=== PATIENT | female | born 1970 | race Caucasian/White ===

== ENCOUNTER → 2023-09-03 11:53 | Outpatient (REF) | payer BC, SELFPAY | LOC: HWRAD 11:53 | PROVIDERS: ATTENDING PHYSICIAN Internal Medicine Hematology & Oncology; FAMILY PHYSICIAN Family Medicine | DX: R19.07 Generalized intra-abdominal and pelvic swelling, mass and lump (principal); Z85.820 Personal history of malignant melanoma of skin; C56.9 Malignant neoplasm of unspecified ovary | CPT/HCPCS: 71270; 74178; Q9967 ==

== ENCOUNTER → 2023-09-08 08:16 | Outpatient (REF) | payer BC, SELFPAY | LOC: MRI 08:16 | PROVIDERS: ATTENDING PHYSICIAN Radiology Radiation Oncology; FAMILY PHYSICIAN Family Medicine | DX: C79.31 Secondary malignant neoplasm of brain (principal) | CPT/HCPCS: 72156; A9575 ==

== ENCOUNTER → 2023-09-09 08:15 | Outpatient (REF) | payer BC, SELFPAY | LOC: MRI 08:15 | PROVIDERS: ATTENDING PHYSICIAN Radiology Radiation Oncology; FAMILY PHYSICIAN Family Medicine | DX: C79.31 Secondary malignant neoplasm of brain (principal) | CPT/HCPCS: 72157; 72158; A9575 ==

== ENCOUNTER 2023-11-03 17:39 | Emergency (ER) | payer BC, SELFPAY ==
[2023-11-03 17:41] VITALS: BP 126/70
--- NOTE | 2023-11-03 19:10 | ED.GENMED ---
History of Present Illness
General
Chief Complaint: Musculo-Skeletal Complaint
Time Seen by Provider: 11/03/23 19:10
Travel History
Have you had any contact with someone who has COVID-19?: No
Do you have any symptoms of coronavirus? Fever > 100 degrees, chills, cough, shortness of breath, sore throat, loss of taste or smell, muscle aches, or headache?: No
History of Present Illness
History of Present Illness:
HPI: Patient presents due to increasing weakness along with paresthesias to both lower extremities over the past couple of days. She has a history of metastatic ovarian cancer. She fell today. She called her doctors at [facility] and they
told her to come to the closest hospital for evaluation for the possibility of 'spinal compression'.
EXAM:
GENERAL: Hair loss noted, she appears somewhat weak but has excellent mental status, she appears somewhat uncomfortable at times
HEENT: Moist oral mucosa
CARDIOVASCULAR: No murmurs, normal heart rate, regular rhythm, No chest wall tenderness
PULMONARY: No respiratory distress, breath sounds are clear and equal
ABDOMEN: Soft with no peritoneal signs, no tenderness
NEUROLOGIC: Excellent strength all extremities, no coordination deficits, she is able to lift each leg independently off the stretcher, she has good strength in an L5 and S1 distribution, she has no sensory deficits to the lower extremity
PSYCHIATRIC: Appropriate mental status, normal insight and judgement
EXTREMITIES: Nontender, no edema, moves all extremities equally
SKIN: Older/healing shingles noted to the right side of the posterior skull
TIME OF INITIAL ENCOUNTER: 7:30 PM
NUMBER AND COMPLEXITY OF PROBLEMS ADDRESSED AT THE ENCOUNTER
� Chronic conditions affecting care: Ovarian cancer, GERD, anemia
� Acute Exacerbation and/or Progression of Chronic Illness: This is an acute problem
� Differential Diagnosis includes: Progression of ovarian cancer,
AMOUNT AND/OR COMPLEXITY OF DATA TO BE REVIEWED AND ANALYZED
� I performed an independent evaluation of and my interpretation is:
EKG:
CT:
X-rays:
Laboratory Studies:
Other: MRI of the L-spine has been performed and I reviewed radiologist interpretation
� Review of other/old records: I reviewed MR imaging from 2 months ago. 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
which was known. There is also a small hemangioma in the superior endplate of L5 and there is no abnormal enhancement on postcontrast imaging to suggest metastatic disease of the lumbar spine. The patient was found to have metastatic disease to
the brain in August 2023.
� Clinical information was obtained by an independent historian: I spoke to the at bedside
� Prescriptions/Medications Considered but not given:
� Further testing considered but not performed: Considered CT/MRI of the brain however the patient has no focal findings but generally has weakness in both legs equally.
RISK OF COMPLICATIONS AND/OR MORBIDITY OR MORTALITY OF PATIENT MANAGEMENT
� Social determinants of health affecting care: Lives at home, gets care at [facility]
� Discussion with other providers: Notified our radiologist, Dr. Aguero and reached out to [facility] on-call to discuss options of imaging. Dr. Aguero recommended checking only 1 level MRI�I have ordered L-spine without
contrast after discussing with him. I also notified the covering oncologist at [facility] who agrees with plan of checking MRI tonight. I also discussed case with Dr. Chance also suggested outpatient EMG but no clear indication for
admission to the hospital. I also communicated and left consult with care management for them to call the tomorrow.
� Escalation of care including admission/observation vs risk of discharge considered: Although patient states she has had increasing gait dysfunction, her neurologic exam on the stretcher is relatively unremarkable. She is able
to get each leg off the stretcher without difficulty. She has no sensory deficits. She reports no new urinary incontinence. The patient has known metastatic disease to the brain and is status postradiation. She has a nonfocal neurologic
examination tonight.
Past History
Past History
ED Past Medical History: Cancer (Ovarian) and Other (No melena, benign heart murmur, esophagitis)
ED Past Surgical History: Orthopedic
Social History
Tobacco: Non-smoker
Phy Exam
Physical Exam
Physical Exam:
See HPI
Course
Orders/Labs/Results
Orders:
Orders
11/03/23 19:36
MR Lumbar Without Contrast Urgent
Comment:
Reason For Exam: worsening gait dysfunction
Recent pill cam endoscopy?: No
11/03/23 21:53
Basic Metabolic Panel Urgent
Complete Blood Count/With Diff Urgent
11/03/23 22:39
Case Management Consult ONCE
Case Management Consult: VN/Home Care
Comment: At patient request, please call , . She has ovarian cancer now w/ progressively
worse gait dysfunction sent here to have imaging to ensure no spinal cord abnormality. She had
C/T/L MRI 2M ago that showed no mets. L-spine MRI tonight again shows no mets. She has known mets
to brain. I spoke to neuro - no clear indication for admission, but is having very tough
time caring for her at home - they have a walker and that is about it. Please call him. Thanks.
Vital Signs
Initial and Last Documented VS:
Initial Vital Signs
Temp Pulse Resp BP Pulse Ox
98.4 F 113 20 126/70 98
11/03/23 17:41 11/03/23 17:41 11/03/23 17:41 11/03/23 17:41 11/03/23 17:41
Last Documented Vital Signs
Temp Pulse Resp BP Pulse Ox
98.4 F 113 20 126/70 98
11/03/23 17:41 11/03/23 17:41 11/03/23 17:41 11/03/23 17:41 11/03/23 17:41
*Critical Care Note
Total Time (30-74mins, 75-104mins- exclusive of procedures): Not Applicable
ED Attending Note
-
Portions of this chart may have been created with voice recognition software.� Occasional wrong word or��sound alike� substitutions may have occurred due to the inherent limitations of voice recognition software.
Discharge Plan
Departure
Patient Disposition: Home (Routine Discharge)
Date of Disposition: 11/03/23
Time of Disposition: 22:38
Patient with high blood pressure during this ER visit?: Yes
Discharge Problem:
Gait disturbance
Prescriptions:
No Action
ondansetron HCl 8 mg Tablet
8 mg PO PRN PRN (Reason: nausea)
Carafate
10 ml PO Q6H
Colace
100 mg PO DAILY
Vitamin D2
Xanax
0.5 mg PO PRN PRN (Reason: anxiety)
ferrous sulfate
325 mg PO DAILY
fluticasone furoate
27.5 mcg inhalation PRN PRN (Reason: allergies)
loratadine
10 mg PO PRN PRN (Reason: stuffy nose)
naproxen sodium
220 mg PO PRN PRN (Reason: pain)
prochlorperazine maleate
10 mg PO PRN PRN (Reason: nausea)
trazodone
50 mg PO PRN PRN (Reason: insomnia)
Granix 480 mcg/0.8 mL Syringe
480 mcg SC ONCE Qty: 0.8 0RF
magnesium oxide 500 mg Tablet
500 mg PO DAILY 30 Days Qty: 30 0RF
nystatin 100,000 unit/mL Suspension
5 ml PO QID Qty: 473 0RF
pantoprazole 20 mg Tablet,Delayed Release (Dr/Ec)
20 mg PO BID 30 Days Qty: 60 0RF
polyethylene glycol 3350 17 gram Powder In Packet
8.5 g PO DAILYPRN PRN (Reason: constipation) Qty: 30 0RF
Rx Instructions:
1/2 capful every other day as needed
Referrals:
Mustapha Sharpe, DO [Family Provider] -
Telma Sheppard, DO [Active] - Follow up in 2-3 days
Activity Restrictions/Additional Instructions:
I have given you the contact information for the local neurologist that I spoke to Radha Sheppard. The MRI of the lumbar spine shows no sign of cord issue and no metastatic disease. I also recommend that you call your doctors at
[facility] tomorrow. I placed a consult to care management and asked them to call your to see if they have any other suggestions of how to help you.
Interventions
Interventions:
*Risk Screen - Suicide Last Done: 11/03/23 17:41
*General Assessment Last Done: 11/03/23 17:41
*Neglect/Abuse Screening Last Done: 11/03/23 17:41
ED- Fall Risk Assessment Last Done: 11/03/23 22:58
*ED COVID-19 Vaccine History Last Done: 11/03/23 22:58
*Nursing Disposition Last Done: 11/03/23 22:58
ED-Musculoskeletal Assessment Last Done: 11/03/23 19:49
Discharge Date and Time
Discharge Date/Time: 11/03/23 22:59
Print Language: TURKMEN
--- NOTE | 2023-11-04 10:40 | CM ---
CM consult requesting call to patient . CM called and VM left for call back. CM will continue to follow for discharge planning needs.
== END 2023-11-03 22:59 | disposition home or self-care (01) ==
LOC: EMR 17:39
PROVIDERS: EMERGENCY PHYSICIAN Emergency Medicine; FAMILY PHYSICIAN Family Medicine
DX: R26.9 Unspecified abnormalities of gait and mobility (principal); W19.XXXA Unspecified fall, initial encounter; C79.31 Secondary malignant neoplasm of brain; Z85.43 Personal history of malignant neoplasm of ovary
CPT/HCPCS: 99284; 72148